=== PATIENT | male | born 1950 | race Caucasian/White ===

== ENCOUNTER 2022-01-18 21:12 | Emergency (ER) | payer OTHER ==
[~2022-01-18] VITALS: Ht 167.6 cm; Wt 77.1 kg
[2022-01-18 21:17] VITALS: BP 140/95
--- NOTE | 2022-01-18 21:17 | NUR ---
Patient BIB by P. Patient sit on chair C.
[2022-01-18 21:23] VITALS: BP 140/95
--- NOTE | 2022-01-18 21:42 | NUR ---
Dr. Bajwa examining patient.
--- NOTE | 2022-01-18 21:55 | NUR ---
Patient D/C to custody.
== END 2022-01-18 21:55 ==
LOC: MED 21:12
DX: Z02.89 Encounter for other administrative examinations (principal); F10.129 Alcohol abuse with intoxication, unspecified; I10 Essential (primary) hypertension; Z86.73 Personal history of transient ischemic attack (TIA), and cerebral infarction without residual deficits; Y90.9 Presence of alcohol in blood, level not specified; Z87.448 Personal history of other diseases of urinary system; V89.2XXA Person injured in unspecified motor-vehicle accident, traffic, initial encounter; Y93.89 Activity, other specified; Y92.410 Unspecified street and highway as the place of occurrence of the external cause; Y99.8 Other external cause status
CPT/HCPCS: 99283